=== PATIENT | male | born 1950 | race Caucasian/White ===

== ENCOUNTER 2019-10-24 00:30 | Observation (INO) | payer OTHER ==
[2019-10-24] MEDS ORDERED: NA CHLORIDE 0.9% 1,000 ML ONE (01:43)
[2019-10-24] MEDS ORDERED: ONDANSETRON 4 MG/2 ML VIAL ONE (01:43)
[2019-10-24] MEDS ORDERED: MORPHINE 4 MG/ML SYR ONE (01:43)
[2019-10-24 01:53] LABS: Absolute Lymphocytes (CBC) 0.7 K/uL (0.7-4.9); Basophils % 0.5 % (0-1.3); Lymphocytes % 5.9 % (15.3-44.8); MPV 9.3 fL (7.6-11.3); RBC Red Blood Cell Count 4.85 M/uL (4.33-5.43)
[2019-10-24 02:09] LABS: Albumin 4.2 g/dL (3.4-5.0); Bilirubin Direct 0.2 mg/dL (0-0.2); Bilirubin Total 0.6 mg/dL (0.2-1.0); Potassium 3.6 mmol/L (3.5-5.1); Protein, Total 7.7 g/dL (6.4-8.2)
[2019-10-24 02:12] LABS: Platelet Estimate ADEQ
[2019-10-24 02:13] LABS: Blood Morphology Comment NOT SEEN (NOT SEEN); Platelets, Giant OCC
--- NOTE | 2019-10-24 04:46 | EDPHYS ---
Physician Documentation [facility] Name: Sam Monroe Age: 68 yrs Sex: Male : 1950 Arrival Date: 10/24/2019 Time: 00:33 Bed 4 Private MD: ED Physician Marcello Viera HPI: 10/23 01:40 This 68 yrs old Male presents to ER via Ambulatory with complaints of pkl Vomiting, Abdominal Pain. 01:40 The patient presents with abdominal pain. The patient presents with abdominal pain in pkl the right upper quadrant, in the left upper quadrant. Onset: The symptoms/episode began/occurred today. Associated signs and symptoms: Pertinent positives: nausea and vomiting. Historical: - Allergies: 01:06 PENICILLINS; jb4 - Home Meds: 01:06 allopurinol 300 mg Oral tab 1 tab once daily [Active]; amlodipine 5 mg tab 1 tab once jb4 daily [Active]; atorvastatin 80 mg oral tab 1 tab once daily [Active]; Aspirin Oral [Active]; fenofibrate 145 mg cap oral cap 1 cap once daily [Active]; Jardiance 10 mg oral tab 1 tab once daily [Active]; levothyroxine 75 mcg tab 1 tab once daily [Active]; lisinopril-hydrochlorothiazide 20-25 mg oral tab 1 tab once daily [Active]; troujeo [Active]; Trulicity 0.75 mg/0.5 mL subcutaneous pnij once wkly [Active]; gabapentin 300 mg oral cap 1 cap 4 times per day [Active]; - PMHx: 01:06 Gout; Hypothyroidism; Hypertension; Diabetes - NIDDM; jb4 - PSHx: 01:06 Heart stents; YADI Ears; jb4 - Immunization history:: Adult Immunizations up to date. - Social history:: Smoking status: Patient denies any tobacco usage or history of. Patient/guardian denies using alcohol, street drugs. ROS: 01:40 Eyes: Negative for injury, pain, redness, and discharge, ENT: Negative for injury, pkl pain, and discharge, Neck: Negative for injury, pain, and swelling, Cardiovascular: Negative for chest pain, palpitations, and edema, Respiratory: Negative for shortness of breath, cough, wheezing, and pleuritic chest pain. 01:40 Abdomen/GI: Positive for abdominal pain, nausea and vomiting, of the right upper quadrant and left upper quadrant. 01:40 Back: Negative for acute changes. 01:40 : Negative for urinary symptoms. 01:40 MS/extremity: Negative for acute changes. 01:40 Skin: Negative for rash. 01:40 Neuro: Negative for altered mental status. Exam: 01:40 Head/Face: Normocephalic, atraumatic. Eyes: Pupils equal round and reactive to light, pkl extra-ocular motions intact. Lids and lashes normal. Conjunctiva and sclera are non-icteric and not injected. Cornea within normal limits. Periorbital areas with no swelling, redness, or edema. ENT: Nares patent. No nasal discharge, no septal abnormalities noted. Tympanic membranes are normal and external auditory canals are clear. Oropharynx with no redness, swelling, or masses, exudates, or evidence of obstruction, uvula midline. Mucous membranes moist. Neck: Trachea midline, no thyromegaly or masses palpated, and no cervical lymphadenopathy. Supple, full range of motion without nuchal rigidity, or vertebral point tenderness. No Meningismus. Chest/axilla: Normal chest wall appearance and motion. Nontender with no deformity. No lesions are appreciated. Cardiovascular: Regular rate and rhythm with a normal S1 and S2. No gallops, murmurs, or rubs. Normal PMI, no JVD. No pulse deficits. Respiratory: Lungs have equal breath sounds bilaterally, clear to auscultation and percussion. No rales, rhonchi or wheezes noted. No increased work of breathing, no retractions or nasal flaring. 01:40 Abdomen/GI: Bowel sounds: normal, Palpation: soft, mild abdominal tenderness, in the left upper quadrant. 01:40 Back: Exam negative for acute changes. 01:40 : Exam negative for acute changes. 01:40 Musculoskeletal/extremity: Exam is negative for acute changes. 01:40 Skin: Exam negative for rash. 01:40 Neuro: Orientation: is normal, Mentation: is normal, Cranial nerves: grossly normal, Motor: is normal. Vital Signs: 00:58 BP 135 / 63; Pulse 56; Resp 16; Temp 97.4(O); Pulse Ox 98% on R/A; Weight 108.86 kg jb4 (R); Height 6 ft. 0 in. (182.88 cm) (R); Pain 9/10; 01:45 BP 100 / 58; Pulse 43; Resp 16; Pulse Ox 98% on R/A; jb4 04:22 BP 120 / 55; Pulse 58; Resp 16; Pulse Ox 97% ; Pain 8/10; rr5 00:58 Body Mass Index 32.55 (108.86 kg, 182.88 cm) jb4 MDM: 04:34 Data reviewed: vital signs, nurses notes, lab test result(s), radiologic studies, CT pkl scan. ED course: Talked to Dr. Mathis, admit to Hospitalist. 04:45 Patient medically screened. pkl 10/23 01:21 Order name: Basic Metabolic Panel; Complete Time: 03:55 pkl 10/23 01:21 Order name: CBC with Diff; Complete Time: 03:55 pkl 10/23 01:21 Order name: Hepatic Function; Complete Time: 03:55 pkl 10/23 01:21 Order name: Lipase; Complete Time: 03:55 pkl 10/23 01:21 Order name: Creatinine, Serum pkl 10/23 02:02 Order name: Manual Differential; Complete Time: 03:55 EDMS 10/23 02:27 Order name: CREATININE WHOLE BLOOD; Complete Time: 03:55 EDMS 10/23 02:54 Order name: Abdomen EDMS 10/23 05:09 Order name: CONS Physician Consult EDMS 10/23 01:21 Order name: IV Saline Lock; Complete Time: 01:54 pkl 10/23 01:21 Order name: Labs collected and sent; Complete Time: 01:54 pkl Administered Medications: 01:50 Drug: NS 0.9% 1000 ml Route: IV; Rate: 1000 ml; Site: right antecubital; jb4 02:30 Follow up: Response: No adverse reaction; IV Status: Completed infusion; IV Intake: jb4 1000ml 01:50 Drug: Zofran (Ondansetron) 4 mg Route: IVP; Site: right antecubital; jb4 02:20 Follow up: Response: No adverse reaction; Nausea is decreased jb4 01:54 Not Given (Hemodynamic Parameters): morphine 4 mg IVP once; RASS on ADMIN: Combtv4, jb4 Very Agttd3, Agttd2, Rstlss1, AlertClm0, Drwsy-1, Lt Sdtn-2, Mod Sdtn-3, Dp Sdtn-4, UnArsble-5 05:07 Drug: LevaQUIN 750 mg Volume: 150 ml; Route: IVPB; Infused Over: 90 mins; Site: right jb4 antecubital; 05:29 Follow up: Response: No adverse reaction; IV Status: Infusion continued upon admission jb4 Disposition: 10/24/19 04:45 Hospitalization ordered by Mario Atkinson for Inpatient Admission. Preliminary diagnosis is Abdominal pain. Cholelithiasis. Gallbladder sludge with biliary dyskinesia. Chronic renal disease. - Bed requested for Telemetry/MedSurg (Inpatient). - Status is Inpatient Admission. bb - Condition is Stable. - Problem is new. - Symptoms are unchanged. Signatures: Dispatcher [employer] EDMS Marcello Viera MD MD pkl Genie Roberts, EVY RN Radha Bello RN RN Tyrone Carmen RN RN jb4 Corrections: (The following items were deleted from the chart) 02:54 01:22 Abdomen Pelvis W Con+CT.RAD.BRZ ordered. [facility] EDME 05:16 04:45 Hospitalization Ordered by Mario Atkinson MD for Inpatient Admission. Preliminary cg diagnosis is Abdominal pain. Cholelithiasis. Gallbladder sludge with biliary dyskinesia. Chronic renal disease. Bed requested for Telemetry/MedSurg (Inpatient). Status is Inpatient Admission. Condition is Stable. Problem is new. Symptoms are unchanged. pkl 05:33 05:16 10/24/2019 04:45 Hospitalization Ordered by Mario Atkinson MD for Inpatient bb Admission. Preliminary diagnosis is Abdominal pain. Cholelithiasis. Gallbladder sludge with biliary dyskinesia. Chronic renal disease. Bed requested for Telemetry/MedSurg (Inpatient). Status is Inpatient Admission. Condition is Stable. Problem is new. Symptoms are unchanged. cg
--- NOTE | 2019-10-24 04:46 | ER ---
Nurse's Notes [facility] Name: Sam Monroe Age: 68 yrs Sex: Male : 1950 Arrival Date: 10/24/2019 Time: 00:33 Bed 4 Private MD: Diagnosis: Abdominal pain. Cholelithiasis. Gallbladder sludge with biliary dyskinesia. Chronic renal disease Presentation: 10/23 00:58 Chief complaint: Patient states: I started having abdominal pain around lunch time. It jb4 started on the left side of my upper abdomen and radiates to the right. the pain has progressively gotten worse. Coronavirus screen: Client denies travel out of the [place] in the last 14 days. At this time, the client does not indicate any symptoms associated with coronavirus-19. Ebola Screen: No symptoms or risks identified at this time. Initial Sepsis Screen: Does the patient meet any 2 criteria? No. Patient's initial sepsis screen is negative. Does the patient have a suspected source of infection? No. Patient's initial sepsis screen is negative. Risk Assessment: Do you want to hurt yourself or someone else? Patient reports no desire to harm self or others. Onset of symptoms was October 24, 2019. Transition of care: patient was not received from another setting of care. 00:58 Method Of Arrival: Ambulatory jb4 00:58 Acuity: SYL 3 jb4 Historical: - Allergies: 01:06 PENICILLINS; jb4 - Home Meds: 01:06 allopurinol 300 mg Oral tab 1 tab once daily [Active]; amlodipine 5 mg tab 1 tab once jb4 daily [Active]; atorvastatin 80 mg oral tab 1 tab once daily [Active]; Aspirin Oral [Active]; fenofibrate 145 mg cap oral cap 1 cap once daily [Active]; Jardiance 10 mg oral tab 1 tab once daily [Active]; levothyroxine 75 mcg tab 1 tab once daily [Active]; lisinopril-hydrochlorothiazide 20-25 mg oral tab 1 tab once daily [Active]; troujeo [Active]; Trulicity 0.75 mg/0.5 mL subcutaneous pnij once wkly [Active]; gabapentin 300 mg oral cap 1 cap 4 times per day [Active]; - PMHx: 01:06 Gout; Hypothyroidism; Hypertension; Diabetes - NIDDM; jb4 - PSHx: 01:06 Heart stents; YADI Ears; jb4 - Immunization history:: Adult Immunizations up to date. - Social history:: Smoking status: Patient denies any tobacco usage or history of. Patient/guardian denies using alcohol, street drugs. Screenin:06 Abuse screen: Denies threats or abuse. Nutritional screening: No deficits noted. jb4 Tuberculosis screening: No symptoms or risk factors identified. Fall Risk None identified. Assessment: 01:06 General: Appears in no apparent distress. uncomfortable, Behavior is calm, cooperative, jb4 appropriate for age. Pain: Complains of pain in left upper quadrant Pain radiates to right upper quadrant Pain currently is 9 out of 10 on a pain scale. Quality of pain is described as stabbing. Neuro: Level of Consciousness is awake, alert, obeys commands, Oriented to person, place, time, situation. Cardiovascular: Patient's skin is warm and dry. Respiratory: Airway is patent Respiratory effort is even, unlabored, Respiratory pattern is regular, symmetrical. GI: Abdomen is round non-distended, Bowel sounds present X 4 quads. Abd is soft X 4 quads Abd is non tender in right upper quadrant, right lower quadrant and left lower quadrant Abdomen is tender to palpation in left upper quadrant. : No signs and/or symptoms were reported regarding the genitourinary system. EENT: No signs and/or symptoms were reported regarding the EENT system. Derm: Skin is intact, Skin is pink, warm \T\ dry. Musculoskeletal: Circulation, motion, and sensation intact. Range of motion: intact in all extremities. 01:45 Reassessment: Patient appears in no apparent distress at this time. Patient and/or jb4 family updated on plan of care and expected duration. Pain level reassessed. Patient is alert, oriented x 3, equal unlabored respirations, skin warm/dry/pink. PT reports pain is tolerable and 5/10 Patient states feeling better. 04:22 Reassessment: complaining of abdominal pain pain score 8/10 ED provider informed rr5 awaiting for his order he will reassess the patient first. 05:26 Reassessment: Patient appears in no apparent distress at this time. Patient and/or jb4 family updated on plan of care and expected duration. Pain level reassessed. Patient is alert, oriented x 3, equal unlabored respirations, skin warm/dry/pink. Report called to EVY DUCKWORTH. Vital Signs: 00:58 BP 135 / 63; Pulse 56; Resp 16; Temp 97.4(O); Pulse Ox 98% on R/A; Weight 108.86 kg jb4 (R); Height 6 ft. 0 in. (182.88 cm) (R); Pain 9/10; 01:45 BP 100 / 58; Pulse 43; Resp 16; Pulse Ox 98% on R/A; jb4 04:22 BP 120 / 55; Pulse 58; Resp 16; Pulse Ox 97% ; Pain 8/10; rr5 00:58 Body Mass Index 32.55 (108.86 kg, 182.88 cm) jb4 ED Course: 00:33 Patient arrived in ED. cl3 00:51 Tyrone Luke RN is Primary Nurse. jb4 00:58 Marcello Viera MD is Attending Physician. pkl 01:00 Triage completed. jb4 01:06 Arm band placed on right wrist. jb4 01:06 Patient has correct armband on for positive identification. Bed in low position. Call jb4 light in reach. Side rails up X 1. Pulse ox on. NIBP on. 01:45 Initial lab(s) drawn, by me, sent to lab. Inserted saline lock: 18 gauge in right jb4 antecubital area, using aseptic technique. Blood collected. 03:41 Abdomen In Process Unspecified. EDMS 04:42 Mario Atkinson MD is Hospitalizing Provider. pkl 05:26 No provider procedures requiring assistance completed. Patient admitted, IV remains in jb4 place. Administered Medications: 01:50 Drug: NS 0.9% 1000 ml Route: IV; Rate: 1000 ml; Site: right antecubital; jb4 02:30 Follow up: Response: No adverse reaction; IV Status: Completed infusion; IV Intake: jb4 1000ml 01:50 Drug: Zofran (Ondansetron) 4 mg Route: IVP; Site: right antecubital; jb4 02:20 Follow up: Response: No adverse reaction; Nausea is decreased jb4 01:54 Not Given (Hemodynamic Parameters): morphine 4 mg IVP once; RASS on ADMIN: Combtv4, jb4 Very Agttd3, Agttd2, Rstlss1, AlertClm0, Drwsy-1, Lt Sdtn-2, Mod Sdtn-3, Dp Sdtn-4, UnArsble-5 05:07 Drug: LevaQUIN 750 mg Volume: 150 ml; Route: IVPB; Infused Over: 90 mins; Site: right jb4 antecubital; 05:29 Follow up: Response: No adverse reaction; IV Status: Infusion continued upon admission jb4 Intake: 02:30 IV: 1000ml; Total: 1000ml. jb4 Outcome: 04:45 Decision to Hospitalize by Provider. vivien 05:26 Admitted to Tele accompanied by nurse, via wheelchair, room 220, with chart, Report jb4 called to EVY Duckworth 05:26 Condition: stable 05:26 Discharge instructions given to patient, Instructed on the need for admit, Demonstrated understanding of instructions. 05:33 Patient left the ED. sera Signatures: Dispatcher [employer] EDMS Marcello Viera MD MD pkGenie Castle RN RN Tyrone Roberts RN RN jb4 Mario Smith RN RN rr5 Klaudia Ramirez cl3
[2019-10-24] MEDS ORDERED: Levofloxacin 750mg IV 750 MG/150 ML BAG IV ONE (05:15)
--- NOTE | 2019-10-24 05:19 | P.HP ---
Certification for Inpatient Patient admitted to: Inpatient With expected LOS: >2 Midnights Patient will require the following post-hospital care: None Practitioner: I am a practitioner with admitting privileges, knowledge of patient current condition, hospital course, and medical plan of care. Services: Services provided to patient in accordance with Admission requirements found in Title 42 Section 412.3 of the Code of Federal Regulations <David Ibarra - Last Filed: 10/24/19 05:12> Patient History Date of Service: 10/24/19 Primary Care Provider: Dr. Yan, corey- Dr. Disla Reason for admission: Biliary dyskinesia, cholelithiasis History of Present Illness: 60-year-old male with history of hypertension, diabetes mellitus type 2, hyperlipidemia, gout, hypothyroidism presents emergency department for upper abdominal pain and vomiting. Patient reports that on and off for the last couple weeks he has had abdominal pain and vomiting but that the pain became significantly worse the last night. Patient presented to the emergency department for evaluation. Patient's labs mostly unremarkable aside from creatinine of 1.55. Due to elevated creatinine ED provider wish to perform CT with oral contrast only. CT revealed gallbladder sludge with biliary dyskinesia and a 7 mm stone lodged in the gallbladder neck without any biliary dilatation. ED provider consulted with general surgeon who wishes to have patient admitted under hospitalist service for management of other chronic conditions, placed on antibiotics and pain medications and kept NPO for further evaluation. When I saw the patient in the emergency department he was awake, alert, oriented x4. Patient reports upper abdominal pain both left and right but tenderness to the right upper quadrant only. Patient does not appear septic at this time. 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 - Family History Mother -: Diabetes - Social History Smoking Status: Never smoker Alcohol use: No CD- Drugs: No Caffeine use: Yes Place of Residence: Home <StaceyDavid - Last Filed: 10/24/19 05:12> Date of Service: 10/24/19 <Mario Atkinson - Last Filed: 10/24/19 20:20> Allergies Penicillins Allergy (Verified 10/24/19 05:55) Hives/Rash Home Medications: Allopurinol 1 tab PO DAILY 10/24/19 Amlodipine [Norvasc*] 1 tab PO DAILY 10/24/19 Aspirin 81 mg PO DAILY 10/24/19 Atorvastatin Calcium [Lipitor] 1 tab PO DAILY 10/24/19 Dulaglutide [Trulicity] 0.5 ml SQ EVERY 7TH DAY 10/24/19 Empagliflozin [Jardiance] 10 mg PO DAILY 10/24/19 Fenofibrate [Tricor*] 1 tab PO DAILY 10/24/19 Gabapentin 1 tab PO QID 10/24/19 Insulin Glargine,Hum.rec.anlog [Toujeo Solostar] 84 unit SQ DAILY 10/24/19 Levothyroxine [Synthroid*] 1 tab PO DAILY 10/24/19 Lisinopril/Hydrochlorothiazide [Lisinopril-Hctz 20-25 mg Tab] 1 tab PO DAILY 10/24/19 levoFLOXacin [Levaquin] 1 tab PO DAILY 5 Days #5 tab 10/24/19 metroNIDAZOLE [Flagyl] 1 tab PO Q8H 5 Days #15 tablet 10/24/19 Review of Systems 10-point ROS is otherwise unremarkable Gastrointestinal: Nausea, Vomiting, Abdominal Pain <David Ibarra - Last Filed: 10/24/19 05:12> Physical Examination - Physical Exam General: Alert, In no apparent distress, Oriented x3 HEENT: Atraumatic, Normocephalic, PERRLA, Mucous membr. moist/pink Neck: Supple Respiratory: Clear to auscultation bilaterally, Normal air movement Cardiovascular: Normal pulses, Regular rate/rhythm, Normal S1 S2 Capillary refill: <2 Seconds Gastrointestinal: Normal bowel sounds, Non-distended, No rebound, No guarding, Tenderness (Mild right upper quadrant and epigastric tenderness) Musculoskeletal: No contractures, No erythema, No tenderness Integumentary: No tenderness/swelling, No erythema, No warmth Neurological: Normal speech, Normal strength at 5/5 x4 extr, Normal tone, Sensation intact - Studies Laboratory Data (last 24 hrs) 10/24/19 01:45: WBC 11.3 H, Hgb 15.1, Hct 44.0, Plt Count 212 10/24/19 01:45: Sodium 136, Potassium 3.6, BUN 26 H, Creatinine 1.55 H, Glucose 173 H, Total Bilirubin 0.6, AST 25, ALT 46, Alkaline Phosphatase 52, Lipase 217 <David Ibarra - Last Filed: 10/24/19 05:12> - Studies Laboratory Data (last 24 hrs) 10/24/19 01:45: WBC 11.3 H, Hgb 15.1, Hct 44.0, Plt Count 212 10/24/19 01:45: Sodium 136, Potassium 3.6, BUN 26 H, Creatinine 1.55 H, Glucose 173 H, Total Bilirubin 0.6, AST 25, ALT 46, Alkaline Phosphatase 52, Lipase 217 <Mario Atkinson - Last Filed: 10/24/19 20:20> Assessment and Plan - Plan Assessment Biliary dyskinesia with obstructing cholelithiasis Diabetes mellitus type 2-insulin dependent Hypertension Hyperlipidemia Gout Hypothyroidism Plan Biliary dyskinesia with obstructing cholelithiasis: General surgery consulted while patient is in the emergency department and will see this patient. NPO, hold off on DVT prophylaxis this time for possible surgical intervention. Continue with Levaquin/Flagyl as patient is allergic to penicillins. Pain and nausea medication in place for as needed use. Appreciate further input from general surgery. Diabetes mellitus type 2-insulin dependent: A.c. HS Accu-Cheks insulin therapy. Hypertension: Hold off on p.o. medications at this time, hydralazine in place for p.r.n. use. Hyperlipidemia: Will hold statins at this time. Gout: Will hold allopurinol this time. Hypothyroidism: Will hold Synthroid at this time. Discharge Plan: Home Plan to discharge in: 24 Hours - Advance Directives Does patient have a Living Will: No Does patient have a Durable POA for Healthcare: No - Code Status/Comfort Care Code Status Assessed: Yes (Patient is full code) Critical Care: No Time Spent Managing Pts Care (In Minutes): 55 <David Ibarra - Last Filed: 10/24/19 05:12> Physician Review Additional Text: Plan of care was discussed with David Ibarra, and I agree with the management plan as noted above. In addition: A RUQ U/S was obtained which revealed: biliary sludge, but no stone, and no signs of acute cholecystitis. The imaging was reviewed with Dr. Dumont, general surgery. Patient's diet was advanced to full liquids, which he tolerated without issue / pain. Several options were discussed, and it was decided to discharge the patient home with 5 days of levaquin & flagyl (penicillin allergy) and to f/u with Dr. Dumont. He will likely need a HIDA scan and to undergo elective cholecystectomy in the near future. <Mario Atkinson - Last Filed: 10/24/19 20:20>
[2019-10-24] MEDS ORDERED: ACETAMINOPHEN 650MG/RECT SUPP PR PRN (05:33)
[2019-10-24] MEDS ORDERED: MORPHINE 2 MG/ML SYR IV PRN (05:33)
[2019-10-24] MEDS ORDERED: HYDRALAZINE HCL 20 MG/ML VIAL IV PRN (05:33)
[2019-10-24] MEDS ORDERED: ONDANSETRON 4 MG/2 ML VIAL IV PRN (05:33)
[2019-10-24] MEDS ORDERED: NA CHLORIDE 0.9% 1,000 ML IV SCH (06:00)
[2019-10-24 06:09] VITALS: BMI 33.5
[2019-10-24] MEDS: METRONIDAZOLE 500mg IVPB 500 MG/100 ML BAG IV SCH ×2 (06:11→13:09)
[2019-10-24 06:54] LABS: Protime INR 1.01
[2019-10-24] MEDS: INSULIN -REGULAR HUMAN 50 UNIT/0.5 ML ML SQ SCH ×2 (07:30→11:30)
--- NOTE | 2019-10-24 10:57 | CON ---
Date of Consultation: 10/24/2019 Brief History Of Present Illness: The patient is a 68-year-old male with a history of hype rtension, diabetes, hyperlipidemia, gout, hypothyroidism, heart stents, who presents with upper abdom inal pain in the epigastric and right upper quadrant, radiating to the left upper quadrant. He state s he has had this for approximately 2 weeks intermittently off and on, but it is getting progressivel y worse. Last night he had the pain significantly after eating spaghetti and noted that he thought t his is the worst pain episode he has had of all these pain episodes over the past 2 weeks. It never went completely away, but he did have significant symptomatic improvement throughout the course, souza darryn, he states that it was very minimal at the majority of times. It did not affect his diet in the vast majority of cases other than noting that with meals, it got significantly worse. He had some ab dominal pain, vomiting prior to his being seen in the ER. Since being seen in the ER, he feels signi ficant improvement and is currently pain free. He states that the pain interestingly was located pre dominantly in the left mid abdomen, not on the right side or in the epigastrium, and it is minimal at this point, minimal tenderness and no pain. Past Medical History: Significant for hypertension, hyperlipidemia, diabetes, gout, hypothyroidism, glaucoma, and coronary artery disease. Past Surgical History: Includes heart stents, eye surgery bilaterally, and ear surgery bilaterally. Social History: He lives with his and currently works in the local [employer]. He denies smoking , alcohol, or recreational drug use. Family History: Significant for diabetes. Review of Systems: Ten-point review of systems other than HPI, denies. Physical Examination: Vital Signs: At the time of examination, his BMI is 33.5. His blood pressure 150/72, pulse 59, resp iratory rate 18, temperature 97.9, oxygen saturation 100% on room air. General: He is awake, alert, and oriented. Psychiatric: Appropriate. Conversive. He is in no apparent distress. HEENT: Normocephalic. Sclerae are anicteric. Mucous membranes are moist. Oropharynx clear. Neck: Supple. No JVD. Chest: Normal expansion and excursion. Cardiovascular: Regular rate and rhythm. Pulmonary: Clear to auscultation bilaterally. Abdomen: Soft with minimal epigastric tenderness to palpation and minimal right upper quadrant tende rness to palpation. Negative Harvey sign. No rebound. No guarding. No focal peritonitis. He nicole tionally has an umbilical hernia. Extremities: No clubbing, cyanosis, or edema. The remainder of the exam is essentially unremarkable. Laboratory Data: White blood cell count of 11.3, hemoglobin is 15.1, hematocrit of 44, platelet coun ts 212, neutrophils 88%. His PT is 11.9, INR 1.09. Sodium is 136, potassium 3.6, chloride 96, carbo n dioxide 30, BUN 26, creatinine 1.5, glucose is 173. His total bilirubin 0.6, direct component 0.2, AST 25, ALT 46, alkaline phosphatase 52, lipase 217. He had imaging performed, which included a CT abdomen and pelvis. The read was dictated as hepatomegaly, gallbladder sludge with biliary dyskinesi a, 7 mm stone lodged in the gallbladder neck without evidence of cholecystitis, mild descending and s igmoid colon diverticulosis without diverticulitis, small hiatal hernia, mild prostatomegaly. Assessment And Plan: This is a 68-year-old male, who presents with signs and symptoms of possible ch olecystitis with cholelithiasis. 1.IV fluid hydration. 2.Antibiotic coverage with Zosyn 3.375 IV q.6. 3.Serial abdominal exams. 4.We will get ultrasound to better define this as there was no evidence of cholecystitis on imaging. We will determine if this is indeed an acute cholecystitis requiring emergency surgery. If so, I w ill proceed with surgery today if possible. I have explained the risks, benefits, and alternatives o f operative versus elective management of this depending on the findings. The patient agrees to have ultrasound and depending on the findings. He would like to attempt to have nonoperative managed at this time and logistically get his gallbladder removed as an outpatient. I have explained the risks, benefits, and alternatives of this plan as well and the patient agrees to proceed as indicated. We will get ultrasound and review with the patient after completed. Thank you for this interesting consult. MITCHELL/CANDIDO Voice ID: [id number] Report ID: [id number]
--- NOTE | 2019-10-24 11:14 | RAD REPORT ---
EXAM DESCRIPTION: US - Abdomen Exam Limited - 10/24/2019 10:24 am CLINICAL HISTORY: concern for acute cholecystitis COMPARISON: Abdomen Pelvis Wo Contrast dated 10/24/2019 FINDINGS: Gallbladder is well filled but not dilated. A moderate amount of sludge is seen layering o n the dependent portion of the gallbladder wall. No gallstones seen. Gallbladder wall is upper normal but does not appear to be clear the thickened or edematous. There is no pericholecystic fluid presen t. Common bile duct is normal with no common duct stone identified. No other significant findings. . IMPRESSION: Moderate volume of sludge in a well filled but nondilated gallbladder. No gallstones con firmed. There is no pericholecystic fluid in the gallbladder wall is not clearly thickened or edematous. No biliary tree abnormality.
[2019-10-24 14:20] VITALS: BP 117/68; TEMP 97.4
--- NOTE | 2019-10-24 15:15 | RAD REPORT ---
EXAM DESCRIPTION: CT - Abdomen Pelvis Wo Contrast - 10/24/2019 7:15 am CLINICAL HISTORY: Abdominal pain. COMPARISON: None. TECHNIQUE: Axial unenhanced CT imaging of the abdomen and pelvis performed. Reformatted coronal and sagittal images reviewed. A dose reduction technique was utilized with automated exposure control according to patient size. FINDINGS: Clear lung bases. Heart is normal in size. Liver is enlarged to 21 cm. Normal liver attenuation and contour. Gallbladder contains dependent slud ge. Moderate gallbladder distention to 12 cm. No evidence of cholecystitis or biliary dilatation. The re is a 7 mm stone lodged in the gallbladder neck. Normal spleen. Normal pancreas. Normal adrenal gla nds and kidneys. No renal stone or hydronephrosis. Significant abdominal aorta atherosclerosis. Normal caliber inferior vena cava. No adenopathy. Signif icant atherosclerosis within the splenic artery. Small hiatal hernia. Normal remaining stomach. The small bowel loops appear normal. Normal appendix i n the right lower quadrant. Mild scattered colonic diverticulosis without diverticulitis. No ascites or free air. Tiny fat-containing umbilical hernia. Normal bladder. Prostate is 5.7 x 4.0 x 5.9 cm. No pelvic free fluid or lymphadenopathy. Nonenlarged groin lymph nodes. Moderate bulky hypertrophic bridging osteophytes in the lower thoracic and lumbar spine. Minimal dege nerative anterior subluxation of L4 on L5. IMPRESSION: 1. Hepatomegaly. 2. Gallbladder sludge with biliary dyskinesia. There is a 7 mm stone lodged in the gallbladder neck w ithout evidence of cholecystitis. 3. Mild descending and sigmoid colon diverticulosis without diverticulitis. 4. Small hiatal hernia. 5. Mild prostatomegaly. Electronically signed by: Niharika Loya DO 10/24/2019 4:11 AM CDT Due to temporary technical issues with the PACS/Fluency reporting system, reports are being signed by the in house radiologist without review as a courtesy to ensure prompt reporting. The interpreting r adiologist is fully responsible for the content of the report.
[2019-10-24 15:59] VITALS: O2SAT 97
[2019-10-25] MEDS ORDERED: Levofloxacin500mg IV 500 MG/100 ML BAG IV SCH (06:00)
== END 2019-10-24 15:47 | disposition home or self-care (01) ==
LOC: ER 00:30 → INTOOBSV 05:13 → ERHOLD 05:13 → 2ND 05:27
PROVIDERS: ADMIT Hospitalist; ATTEND Hospitalist
DX: K80.21 Calculus of gallbladder without cholecystitis with obstruction (principal); K82.8 Other specified diseases of gallbladder; I12.9 Hypertensive chronic kidney disease with stage 1 through stage 4 chronic kidney disease, or unspecified chronic kidney disease; E11.22 Type 2 diabetes mellitus with diabetic chronic kidney disease; N18.9 Chronic kidney disease, unspecified; E78.5 Hyperlipidemia, unspecified; E03.9 Hypothyroidism, unspecified; M10.9 Gout, unspecified; H40.9 Unspecified glaucoma; I25.10 Atherosclerotic heart disease of native coronary artery without angina pectoris; K57.90 Diverticulosis of intestine, part unspecified, without perforation or abscess without bleeding; K44.9 Diaphragmatic hernia without obstruction or gangrene; Z20.828 Contact with and (suspected) exposure to other viral communicable diseases; Z79.4 Long term (current) use of insulin; Z88.0 Allergy status to penicillin; Z95.5 Presence of coronary angioplasty implant and graft; Z83.3 Family history of diabetes mellitus
CPT/HCPCS: 96365; 96361; 85025; 80048; 36415; 85610; 82565; 82947 ×2; 80076; 83690; 74176; 76705; 96375; 99285; U0002; J7030 ×2; J2405; G0378 ×2

== ENCOUNTER 2019-10-30 15:45 | Inpatient (IN) | payer OTHER ==
[2019-10-30] MEDS ORDERED: ONDANSETRON 4 MG/2 ML VIAL IV PRN (16:11)
[2019-10-30] MEDS ORDERED: HYDROMORPHONE HCL 0.5 MG/0.5 ML INJ IV PRN (16:25)
[2019-10-30 16:26] VITALS: BMI 31.8
[2019-10-30 16:44] LABS: Basophils % 0.2 % (0-1.3); Hematocrit 45.3 % (39.6-49.0); Lymphocytes % 10.6 % (15.3-44.8); MPV 9.1 fL (7.6-11.3); RBC Red Blood Cell Count 5.14 M/uL (4.33-5.43)
[2019-10-30 16:48] LABS: Protime INR 1.16
[2019-10-30 17:04] LABS: Albumin 3.7 g/dL (3.4-5.0); Bilirubin Total 0.7 mg/dL (0.2-1.0); Magnesium 2.4 mg/dL (1.8-2.4); Phosphorus 3.5 mg/dL (2.5-4.9); Protein, Total 8.1 g/dL (6.4-8.2)
[2019-10-30] MEDS: NA CHLORIDE 0.9% 1,000 ML IV SCH (17:30)
[2019-10-30] MEDS: ENOXAPARIN 30 MG/0.3 ML SQ SCH (17:30)
[2019-10-30] MEDS: PIPER/TAZO/NS 3.375gm 3.375 GM/100 ML BAG IVPB SCH (17:48)
[2019-10-31] MEDS: PIPER/TAZO/NS 3.375gm 3.375 GM/100 ML BAG IVPB SCH ×3 (01:35→17:28)
[2019-10-31] MEDS: NA CHLORIDE 0.9% 1,000 ML IV SCH ×2 (03:00→13:10)
[2019-10-31 06:24] LABS: Absolute Lymphocytes (CBC) 0.9 K/uL (0.7-4.9); Basophils % 0.4 % (0-1.3); Hematocrit 41.2 % (39.6-49.0); Lymphocytes % 12.8 % (15.3-44.8); RBC Red Blood Cell Count 4.69 M/uL (4.33-5.43)
[2019-10-31 06:28] LABS: Protime INR 1.16
[2019-10-31 06:46] LABS: Albumin 3.1 g/dL (3.4-5.0); Bilirubin Total 0.7 mg/dL (0.2-1.0); Magnesium 2.2 mg/dL (1.8-2.4); Phosphorus 3.1 mg/dL (2.5-4.9); Potassium 3.9 mmol/L (3.5-5.1); Protein, Total 6.9 g/dL (6.4-8.2)
[2019-10-31] MEDS ORDERED: propofoL 200 MG/20 ML VIAL IV ONE (07:24)
[2019-10-31] MEDS ORDERED: LIDOCAINE 1% MPF 5 ML VIAL ONE (07:24)
[2019-10-31] MEDS ORDERED: FENTANYL CITR 100 MCG/2 ML ONE (07:24)
[2019-10-31] MEDS ORDERED: ROCURONIUM 50 MG/5 ML VIAL IV ONE (07:24)
[2019-10-31] MEDS ORDERED: MIDAZOLAM HCL 2 MG/2 ML INJ ONE (07:24)
[2019-10-31 07:32] LABS: Thyroid Stimulating Hormone 7.92 uIU/mL (0.360-3.740)
[2019-10-31] MEDS: ENOXAPARIN 30 MG/0.3 ML SQ SCH (07:46)
[2019-10-31] MEDS ORDERED: BUPIVACA 0.25%/EPI 0.0005%/PF 30 ML VIAL ONE (08:21)
[2019-10-31] MEDS ORDERED: NA CHLORIDE 0.9% 500 ML IV ONE (09:01)
--- NOTE | 2019-10-31 09:06 | P.HP ---
Certification for Inpatient Patient admitted to: Observation With expected LOS: <2 Midnights Patient will require the following post-hospital care: None Practitioner: I am a practitioner with admitting privileges, knowledge of patient current condition, hospital course, and medical plan of care. Services: Services provided to patient in accordance with Admission requirements found in Title 42 Section 412.3 of the Code of Federal Regulations Patient History Date of Service: 10/30/19 Reason for admission: Abdominal pain/hyponatremia History of Present Illness: Patient is a 69-year-old gentleman who came to the doctor's office with abdominal discomfort. Patient was seen at Dr. Dumont's office, his workup suggested possible acute cholecystitis. Patient was set up for outpatient surgery; however, patient's labs revealed significant hyponatremia of 125. On further review of patient's medications he is on hydrochlorothiazide which we discontinued. This is notorious for causing hyponatremia. Will go ahead and gently hydrate the patient. If he should be stable for surgery in the morning. He denies any chest pain or shortness of breath. His mentation is completely normal. His risk for any cardiopulmonary complications are very low. Allergies Penicillins Allergy (Verified 10/24/19 05:55) Hives/Rash Home Medications: Allopurinol 1 tab PO DAILY 10/24/19 Amlodipine [Norvasc*] 1 tab PO DAILY 10/24/19 Aspirin 81 mg PO DAILY 10/24/19 Atorvastatin Calcium [Lipitor] 1 tab PO DAILY 10/24/19 Dulaglutide [Trulicity] 0.5 ml SQ EVERY 7TH DAY 10/24/19 Empagliflozin [Jardiance] 10 mg PO DAILY 10/24/19 Fenofibrate [Tricor*] 1 tab PO DAILY 10/24/19 Levothyroxine [Synthroid*] 1 tab PO DAILY 10/24/19 Lisinopril/Hydrochlorothiazide [Lisinopril-Hctz 20-25 mg Tab] 1 tab PO DAILY 10/24/19 Biotin 1 tab PO DAILY 10/30/19 Cholecalciferol (Vitamin D3) [D3-50] 1 tab PO DAILY 10/30/19 Cranberry Fruit Extract [Cranberry] 2 tab PO DAILY 10/30/19 Docosahexanoic AC/Epa [Fish Oil 1,000 MG*] 2 cap PO DAILY 10/30/19 Insulin Glargine,Hum.rec.anlog [Catrachita Kim] 84 unit SQ DAILY 10/30/19 Lactobacillus Acidophilus [Probiotic] 1 tab PO DAILY 10/30/19 Mecobalamin [B12 Active] 1 tab PO DAILY 10/30/19 Ubidecarenone/Vit E Acet [Co Q-10 100 mg Softgel] 1 tab PO DAILY 10/30/19 Vit A,C & E/Lutein/Minerals [Ocuvite Tablet] 1 tab PO DAILY 10/30/19 - Past Medical/Surgical History Has patient received pneumonia vaccine in the past: Yes Diabetic: Yes -: Hypertension -: Hyperlipidemia -: Diabetes mellitus type 2-insulin dependent -: Gout -: Hypothyroidism -: Glaucoma -: Cardiac stents -: bilateral ear surgery Psychosocial/ Personal History: Patient lives at home with his and 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 - Family History Mother Medical History: Heart disease, Diabetes - Social History Smoking Status: Never smoker Alcohol use: No CD- Drugs: No Caffeine use: Yes Place of Residence: Home Review of Systems 10-point ROS is otherwise unremarkable Physical Examination - Vital Signs Temperature: 98.5 F Blood Pressure: 90/54 Pulse: 66 Respirations: 16 Pulse Ox (%): 98 - Physical Exam General: Alert, In no apparent distress, Oriented x3 HEENT: Atraumatic, PERRLA, Mucous membr. moist/pink, EOMI, Sclerae nonicteric Neck: Supple, 2+ carotid pulse no bruit, No LAD, Without JVD or thyroid abnormality Respiratory: Clear to auscultation bilaterally, Normal air movement Cardiovascular: Regular rate/rhythm, Normal S1 S2, No murmurs Gastrointestinal: Normal bowel sounds, Soft and benign, Non-distended, No tenderness Musculoskeletal: No clubbing, No swelling, No tenderness Integumentary: No rashes Neurological: Normal gait, Normal speech, Normal strength at 5/5 x4 extr, Normal tone, Sensation intact, Cranial nerves 3-12 intact, Normal affect Lymphatics: No axilla or inguinal lymphadenopathy - Studies Laboratory Data (last 24 hrs) 10/31/19 05:40: Lipase 295 10/31/19 05:40: Sodium 129 L, Potassium 3.9, BUN 29 H, Creatinine 1.61 H, Glucose 99, Phosphorus 3.1, Magnesium 2.2, Total Bilirubin 0.7, AST 21, ALT 21, Alkaline Phosphatase 51 10/31/19 05:40: PT 13.7 H, INR 1.16, APTT 31.7 10/31/19 05:40: WBC 7.0 D, Hgb 14.7, Hct 41.2, Plt Count 254 10/30/19 16:29: Sodium 126 L, Potassium 4.0, BUN 35 H, Creatinine 1.73 H, Glucose 150 H, Phosphorus 3.5, Magnesium 2.4, Total Bilirubin 0.7, AST 21, ALT 25, Alkaline Phosphatase 60 10/30/19 16:29: PT 13.7 H, INR 1.16, APTT 33.6 10/30/19 16:29: WBC 9.7, Hgb 16.0, Hct 45.3, Plt Count 281 Assessment & Plan - Problems (Diagnosis) (1) Hyponatremia Current Visit: Yes Status: Acute (2) Abdominal pain Current Visit: Yes Status: Acute (3) Acute cholecystitis Current Visit: Yes Status: Acute (4) CKD (chronic kidney disease), stage III Current Visit: Yes Status: Acute - Plan 1. Continue with IV hydration; continue normal saline at 75 cc an hr. Recheck sodium level in the morning. Check urine sodium and urine osmolality as well. Check thyroid studies and cortisol studies as well. 2. Continue with IV antibiotics 3. Continue with pain control 4. NPO 5. General surgery consultation; 6. Serial H&H, and we will monitor CBC, BMP, LFTs and lipase along with electrolytes. 7. GI and DVT prophylaxis Discharge Plan: Home Plan to discharge in: Greater than 2 days - Advance Directives Does patient have a Living Will: Yes Does patient have a Durable POA for Healthcare: Yes - Code Status/Comfort Care Code Status Assessed: Yes Code Status: Full Code Critical Care: No Time Spent Managing PTS Care (In Minutes): 45
[2019-10-31] MEDS ORDERED: EPHEDRINE SULF 50 MG/ML VIAL ONE (09:10)
[2019-10-31] MEDS ORDERED: NS 0.9% VIAL 10 ML ONE ×2 (09:11→11:27)
[2019-10-31] MEDS ORDERED: NA CHLORIDE 0.9% 1,000 ML ONE (09:14)
[2019-10-31] MEDS ORDERED: dexAMETHasone 10 MG/ML VIAL ONE (09:16)
[2019-10-31] MEDS ORDERED: KETOROLAC 30 MG/ML INJ ONE (09:16)
[2019-10-31] MEDS ORDERED: ONDANSETRON 4 MG/2 ML VIAL ONE (09:16)
[2019-10-31] MEDS ORDERED: GLYCOPYRROLATE 0.2 MG/ML SYR ONE ×2 (09:41→11:30)
[2019-10-31] MEDS ORDERED: Phenylephrine HCl 10 MG/ML 1 ML VIAL ONE (11:27)
[2019-10-31] MEDS ORDERED: NEOSTIGMINE 1 MG/ML -5 ML ONE (11:30)
--- NOTE | 2019-10-31 11:43 | P.OP ---
Preoperative diagnosis: Chronic Cholecystitis with Cholelithiasis Postoperative diagnosis: Chronic Cholecystitis with Cholelithiasis Primary procedure: Laparoscopic Cholecystectomy Anesthesia: GETA + Local Estimated blood loss: <50cc Specimen: Gallbladder Findings: Chronic Cholecystitis with thick scar tissue, short cystic duct, stone @nec Complications: None Drain(s): HANDY drain (10mm flat) Transferred to: Recovery Room Condition: Good
[2019-10-31] MEDS ORDERED: MEPERIDINE HCL 25 MG/ML SYR ONE ×2 (11:55→12:55)
[2019-10-31] MEDS: HYDROMORPHONE HCL 1 MG/ML INJ ONE ×4 (12:17→12:41)
[2019-10-31] MEDS ORDERED: POTASSIUM 25 MEQ EFFERV TAB PO ONE (14:25)
--- NOTE | 2019-10-31 14:31 | OP ---
Date of Procedure: 10/31/2019 Surgeon: Rock Dumont MD, Preoperative Diagnosis: Chronic cholecystitis with cholelithiasis. Postoperative Diagnosis: Chronic cholecystitis with cholelithiasis. Procedure Performed: Laparoscopic cholecystectomy. Anesthesia: General endotracheal plus local. Estimated Blood Loss: Less than 50 mL. Specimen: Gallbladder. Findings: 1.Chronic cholecystitis with thick fibrous scar tissue. 2.Stone impacted in neck of gallbladder. 3.Short cystic duct with neck impinging and creating scar tissue at the confluence of the cystic kit t, common duct junction. 4.Ooziness from hepatic bed. Complications: None. Drains: 10 mm flat HANDY drain placed in the right upper quadrant. The patient is transferred to [facility] in good condition. Procedure In Detail: After informed consent was obtained, the patient was brought to the operating r oom, prepped and draped in the usual sterile fashion after adequate anesthesia achieved. A supraumbi lical area was anesthetized with 0.25% Marcaine, sharply incised. A 5 mm 0-degree optical trocar was introduced in the abdomen without complication. Insufflation was obtained to 15 mmHg at this time. The gallbladder was inspected and not appreciated initially because there was omentum stuck to the a nterior surface of the gallbladder on initial visualization. Three additional trocars were placed, 1 in the epigastrium and 2 in the right upper quadrant, both the similar, anesthetized, and sharply in cised and 5 mm trocars were placed under direct visualization without evidence of complication. The umbilical trocar was then up-sized to a 12 mm under direct visualization without evidence of complica tion. The patient was positioned in head up right-side up position. Ratcheted grasper was used to g rasp the patient's gallbladder. This was incomplete at this point due to the significant distention of the gallbladder and the gallbladder was decompressed with a decompression needle at this point, al lowing for grasping of the gallbladder. However, there was oozing of bile throughout the entire proc edure. After gallbladder was placed, the patient was placed on right shoulder, and dissection contin ued down to take the omental attachments off the anterior surface of the gallbladder. Dissection was continued down to the neck of the gallbladder, was found to be quite thick fibrous with significant adhesions on the anterior surface of the gallbladder at the confluence of the cystic duct junction wi th a neck of the gallbladder. The stone could not be manipulated and the cystic duct was found to be quite short and thickened and not in inflammation, but significant scar tissue was evident here requ iring a slow meticulous dissection for over an hour. After this was completed, the structures were s keletonized showing the cystic duct and cystic artery. The cystic artery was first doubly ligated on the proximal side and singly on the distal side and ligated with Endo Dago with good hemostasis. No additional hemostasis was required at this point. I then placed a single clip on the proximal maksim e of the cystic duct proximal to the neck of the gallbladder, so as not to narrow the common duct, cy stic duct junction and then I placed 2 clips on the distal part 1 proximal on the neck and 1 distal o n the neck beyond the stone. I then ligated the gallbladder, leaving a small rim of gallbladder neck on the proximal side and removed the gallbladder from the hepatic fossa. Therefore, 2 clips were le ft behind on the proximal side of the cystic duct and neck of the gallbladder. At this point, the ga llbladder was removed with the hepatic fossa with significant slow dissection because there was signi ficant oozing throughout the entire procedure requiring full duration of the gallbladder. Attempts u sing the argon was unsuccessful as the argon was not functional at this point. As such, I continued to remove the gallbladder and use fulguration due to good hemostasis. The abdomen was copiously irri gated multiple times using suction irrigation and the effluent was clear at the end of the procedure. I then placed a 10 mm flat HANDY drain through the most lateral trocar into the subhepatic space along with the clips were in good anatomic position for the cystic duct and secured to the skin with a nyl on. I then irrigated it out 1 last time, suctioned out until completely dry, placed Cassi hemostasi s powder into the hepatic fossa. No additional hemostasis was required and the bed was clean and dry . I then removed the umbilical trocar after placing the patient in neutral position, removed the umb ilical trocar, closed with 0 Vicryl in an interrupted fashion with a Richard-Fatuma suture passer un barb direct visualization. All remaining trocars were then removed. All skin incisions were copiousl y irrigated and closed with interrupted hemant and sterile dressing placed on top. The patient myra rated the procedure well without evidence of complication, transferred to PACU in good condition. Al l counts were correct at the end of the case. MITCHELL/CANDIDO Voice ID: [id number] Report ID: [id number]
[2019-10-31] MEDS: ACETAMINOPHEN 500 MG TAB PO PRN (21:01)
[2019-10-31] MEDS: ATORVASTATIN 80 MG TAB PO SCH (21:01)
[2019-11-01] MEDS: PIPER/TAZO/NS 3.375gm 3.375 GM/100 ML BAG IVPB SCH ×3 (00:24→17:24)
[2019-11-01] MEDS: ACETAMINOPHEN 500 MG TAB PO PRN ×2 (04:26→17:24)
[2019-11-01] MEDS: NA CHLORIDE 0.9% 1,000 ML IV SCH ×3 (05:36→19:00)
[2019-11-01] MEDS ORDERED: LEVOTHYROXINE SOD 0.075 MG TAB PO SCH (06:30)
[2019-11-01 06:57] LABS: Albumin 2.8 g/dL (3.4-5.0); Bilirubin Total 4.1 mg/dL (0.2-1.0); Magnesium 2.5 mg/dL (1.8-2.4); Phosphorus 2.1 mg/dL (2.5-4.9); Potassium 3.8 mmol/L (3.5-5.1); Protein, Total 6.4 g/dL (6.4-8.2)
[2019-11-01 06:58] LABS: Absolute Lymphocytes (CBC) 0.5 K/uL (0.7-4.9); Basophils % 0.2 % (0-1.3); Hematocrit 38.6 % (39.6-49.0); Lymphocytes % 6.2 % (15.3-44.8); MPV 9.4 fL (7.6-11.3); RBC Red Blood Cell Count 4.32 M/uL (4.33-5.43)
[2019-11-01] MEDS ORDERED: INSULIN GLARGINE 100 UNITS/ML SQ SCH (09:00)
[2019-11-01] MEDS ORDERED: HOME MED 1 EA UNK (Empagliflozin [Jardiance] 10 MG) PO SCH (09:00)
[2019-11-01] MEDS: ENOXAPARIN 30 MG/0.3 ML SQ SCH (09:00)
[2019-11-01] MEDS ORDERED: CHOLECALCIFEROL PO SCH (09:00)
[2019-11-01] MEDS ORDERED: UBIDECARENONE PO SCH (09:00)
[2019-11-01] MEDS ORDERED: AMLODIPINE 5 MG TAB PO SCH (09:00)
[2019-11-01] MEDS ORDERED: DOCOSAHEXANOIC AC/EPA 1000 MG PO SCH (09:00)
[2019-11-01] MEDS ORDERED: VIT E ACET PO SCH (09:00)
[2019-11-01] MEDS ORDERED: POTASSIUM CL SA 10 MEQ TAB PO ONE (09:00)
[2019-11-01] MEDS ORDERED: ASPIRIN 81 MG CHEWABLE TABLET PO SCH (09:00)
[2019-11-01] MEDS ORDERED: OCUVITE (VIT A,C & E/LUTEIN/MINERAL) TABLET PO SCH (09:00)
[2019-11-01] MEDS ORDERED: CRANBERRY FRUIT EXTRACT PO SCH (09:00)
[2019-11-01] MEDS ORDERED: BIOTIN PO SCH (09:00)
[2019-11-01] MEDS ORDERED: FENOFIBRATE 160 MG TAB PO SCH (09:00)
[2019-11-01] MEDS ORDERED: MECOBALAMIN PO SCH (09:00)
[2019-11-01] MEDS ORDERED: allopurinoL 300 MG TAB PO SCH (09:00)
[2019-11-01] MEDS ORDERED: LACTOBACILLUS/ACIDOPHILUS TAB PO SCH (09:00)
[2019-11-01] MEDS: POTASS/SODIUM PHOSPHATE 1 PKT POWD.PACK PO SCH ×3 (09:20→12:07)
[2019-11-01 11:18] VITALS: O2SAT 93
--- NOTE | 2019-11-01 13:30 | RAD REPORT ---
EXAM DESCRIPTION: NM - Hepatobiliary System Imagin - 11/01/2019 11:55 am CLINICAL HISTORY: Abdominal pain/elevated bilirubin TECHNIQUE: The patient was administered 6.1 millicuries technetium images of the abdomen obtained fo r 2 hours FINDINGS: Liver demonstrates prompt radiotracer uptake. No activity is visualized within the biliary tree. No activity is seen duodenum/small bowel No extravasation of radiotracer noted IMPRESSION: No radiotracer activity within the biliary tree and bowel . Almost certainly the extrahe patic bile duct is obstructed. A possibility but considerably less likely is that the patient has sev ere hepatocellular disease
--- NOTE | 2019-11-01 17:22 | RAD REPORT ---
EXAM DESCRIPTION: Radha Single View11/01/2019 5:01 pm CLINICAL HISTORY: sob COMPARISON: none FINDINGS: Mild right basilar atelectasis episode Left lung appears clear of acute infiltrate. Heart is normal size IMPRESSION: No acute abnormalities displayed
[2019-11-01] MEDS: ATORVASTATIN 80 MG TAB PO SCH (20:51)
[2019-11-01 22:11] VITALS: BP 156/77; TEMP 98.4
--- NOTE | 2019-11-03 09:41 | P.PN ---
Subjective Date of Service: 10/31/19 Patient sodium level is improving. Clinically he appears to be doing well. Scheduled to go to the operating room for a laparoscopic cholecystectomy today. Review of Systems 10-point ROS is otherwise unremarkable Physical Examination - Vital Signs Temperature: 98.4 F Blood Pressure: 156/77 Pulse: 77 Respirations: 17 Pulse Ox (%): 93 - Physical Exam General: Alert, In no apparent distress, Oriented x3 Respiratory: Clear to auscultation bilaterally, Normal air movement Cardiovascular: Regular rate/rhythm, Normal S1 S2, No murmurs Gastrointestinal: Normal bowel sounds, Soft and benign, Non-distended, No tenderness Musculoskeletal: No clubbing, No swelling, No tenderness Neurological: Normal strength at 5/5 x4 extr, Sensation intact, Cranial nerves 3-12 intact - Studies Medications List Reviewed: Yes Assessment & Plan - Problems (Diagnosis) (1) Hyponatremia Status: Acute (2) Abdominal pain Status: Acute (3) Acute cholecystitis Status: Acute (4) CKD (chronic kidney disease), stage III Status: Acute - Plan 1. Continue with IV hydration; continue normal saline at 75 cc an hr. Recheck sodium level in the morning. Check urine sodium and urine osmolality as well. Check thyroid studies and cortisol studies as well. 2. Continue with IV antibiotics 3. Continue with pain control 4. NPO 5. General surgery consultation appreciated ; 6. Serial H&H, and we will monitor CBC, BMP, LFTs and lipase along with electrolytes. 7. GI and DVT prophylaxis Discharge Plan: Home Plan to discharge in: Greater than 2 days - Advance Directives Does patient have a Living Will: Yes Does patient have a Durable POA for Healthcare: Yes - Code Status/Comfort Care Code Status: Full Code Critical Care: No Time Spent Managing PTS Care (In Minutes): 35
--- NOTE | 2019-11-03 09:48 | P.DS ---
Discharge Date: 11/01/19 Disposition: TRANSFER TO [facility] Condition: GOOD Reason for Admission: Abdominal pain/hyponatremia Consultations: General surgeon - Problems (1) Hyponatremia Status: Acute (2) Abdominal pain Status: Acute (3) Acute cholecystitis Status: Acute (4) CKD (chronic kidney disease), stage III Status: Acute Brief History of Present Illness: Patient is a 69-year-old gentleman who came to the doctor's office with abdomin al discomfort. Patient was seen at Dr. Dumont's office, his workup suggested possible acute cholecystitis. Patient was set up for outpatient surgery; however, patient's labs revealed significant hyponatremia of 125. On further review of patient's medications he is on hydrochlorothiazide which we discontinued. This is notorious for causing hyponatremia. Will go ahead and gently hydrate the patient. If he should be stable for surgery in the morning. He denies any chest pain or shortness of breath. His mentation is completely normal. His risk for any cardiopulmonary complications are very low. Hospital Course: Patient had a laparoscopic cholecystectomy that revealed a gangrenous gallbladder. Patient had a HANDY drain placed. The next morning the patient was st ill having some discomfort. Patient's had a HIDA scan that revealed a possible obstruction at the extrahepatic biliary duct. Patient was transferred to [facility]. Vital Signs/Physical Exam: Temp Pulse Resp BP Pulse Ox 98.4 F 77 17 156/77 H 93 11/03/19 09:40 11/03/19 09:40 11/03/19 09:40 11/03/19 09:40 11/03/19 09:40 General: Alert, In no apparent distress, Oriented x3 Laboratory Data at Discharge: WBC Cancelled 11/02/19 05:00 Hgb Cancelled 11/02/19 05:00 Hct Cancelled 11/02/19 05:00 Plt Count Cancelled 11/02/19 05:00 PT 13.7 SECONDS (9.5-12.5) H 10/31/19 05:40 INR 1.16 10/31/19 05:40 APTT 31.7 SECONDS (24.3-36.9) 10/31/19 05:40 Sodium Cancelled 11/02/19 05:00 Potassium Cancelled 11/02/19 05:00 BUN Cancelled 11/02/19 05:00 Creatinine Cancelled 11/02/19 05:00 Glucose Cancelled 11/02/19 05:00 Phosphorus Cancelled 11/02/19 05:00 Magnesium Cancelled 11/02/19 05:00 Total Bilirubin Cancelled 11/02/19 05:00 AST Cancelled 11/02/19 05:00 ALT Cancelled 11/02/19 05:00 Alkaline Phosphatase Cancelled 11/02/19 05:00 Lipase 137 U/L (73-393) 11/01/19 05:56 Home Medications: Allopurinol 1 tab PO DAILY 10/24/19 Aspirin 81 mg PO DAILY 10/24/19 Atorvastatin Calcium [Lipitor] 1 tab PO DAILY 10/24/19 Dulaglutide [Trulicity] 0.5 ml SQ EVERY 7TH DAY 10/24/19 Empagliflozin [Jardiance] 10 mg PO DAILY 10/24/19 Fenofibrate [Tricor*] 1 tab PO DAILY 10/24/19 Levothyroxine [Synthroid*] 1 tab PO DAILY 10/24/19 Biotin 1 tab PO DAILY 10/30/19 Cholecalciferol (Vitamin D3) [D3-50] 1 tab PO DAILY 10/30/19 Cranberry Fruit Extract [Cranberry] 2 tab PO DAILY 10/30/19 Docosahexanoic AC/Epa [Fish Oil 1,000 MG*] 2 cap PO DAILY 10/30/19 Insulin Glargine,Hum.rec.anlog [Toujeo Max Solostar] 84 unit SQ DAILY 10/30/19 Lactobacillus Acidophilus [Probiotic] 1 tab PO DAILY 10/30/19 Mecobalamin [B12 Active] 1 tab PO DAILY 10/30/19 Ubidecarenone/Vit E Acet [Co Q-10 100 mg Softgel] 1 tab PO DAILY 10/30/19 Vit A,C & E/Lutein/Minerals [Ocuvite Tablet] 1 tab PO DAILY 10/30/19 Patient Discharge Instructions: Patient will be transferred to [facility] to general surgery Diet: NPO Activity: Fall precautions Time spent managing pt's care (in minutes): 35
[2019-11-07] MEDS ORDERED: HOME MED 1 EA UNK (Dulaglutide [Trulicity] 0.5 ML) SQ SCH (09:00)
== END 2019-11-01 21:43 | disposition short-term general hospital (02) | DRG 988 ==
LOC: 4TH 15:45 → OBSVTOIN 10-31 16:18
PROVIDERS: ADMIT Hospitalist; ATTEND Hospitalist
PROC: 0W9G4ZZ Drainage of Peritoneal Cavity, Percutaneous Endoscopic Approach (ICD-10-PCS; 2019-10-31)
PROC: 0FT44ZZ Resection of Gallbladder, Percutaneous Endoscopic Approach (ICD-10-PCS; principal; 2019-10-31 08:30)
DX: E87.1 Hypo-osmolality and hyponatremia (principal); K80.13 Calculus of gallbladder with acute and chronic cholecystitis with obstruction; I10 Essential (primary) hypertension; E78.5 Hyperlipidemia, unspecified; I12.9 Hypertensive chronic kidney disease with stage 1 through stage 4 chronic kidney disease, or unspecified chronic kidney disease; N18.3 Chronic kidney disease, stage 3 (moderate); E11.22 Type 2 diabetes mellitus with diabetic chronic kidney disease; K82.A1 Gangrene of gallbladder in cholecystitis; Z79.82 Long term (current) use of aspirin; Z79.4 Long term (current) use of insulin; Z95.5 Presence of coronary angioplasty implant and graft; Z88.0 Allergy status to penicillin; Z79.899 Other long term (current) drug therapy; Z20.828 Contact with and (suspected) exposure to other viral communicable diseases
CPT/HCPCS: 36415; 71045; 78226; 80053; 82533; 82947; 83690; 83735; 83930; 83935; 84100; 84300; 84439; 84443; 85018; 85025; 85610; 85730; 88304; A9537; G0378; G0379; J1100; J1170; J1650; J1815; J2175; J2250; J2370; J2405; J2543; J2704; J2710; J3010; J7030